=== PATIENT | male | born 1955 | race African-American/Black ===

== ENCOUNTER 2021-08-27 12:39 | Inpatient (IN) ==
[2021-08-27] MEDS ORDERED: GLUCAGON 1 MG VIAL IM PRN ×2 (18:09→18:57)
[2021-08-27] MEDS ORDERED: DEXTROSE 50% 25 GM/50 ML SYRINGE IV PRN (18:26)
[2021-08-27] MEDS ORDERED: ACETAMINOPHEN 325 MG TABLET PO PRN (18:57)
[2021-08-27] MEDS ORDERED: ONDANSETRON 4 MG/2 ML VIAL IV PRN (18:57)
[2021-08-27] MEDS ORDERED: DEXTROSE 50% 25 GM/50 ML VIAL IV PRN (18:57)
[2021-08-27 19:05] LABS: Basophils % 0.6 % (0.0-0.8); Eosinophils # 0.2 10*3/uL (0.0-0.87); Eosinophils % 3.2 % (0.00-10.9); Hematocrit 23.1 VOL% (42.0-52.0); Hemoglobin 6.9 GM/DL (14.0-18.0); Immature Granulocytes % 0.4 %; Immature Granulocytes Absolute 0.02 #; Lymphocytes # 0.7 10*3/uL (1.4-4.0); Mean Corpuscular HGB Conc 29.9 GM/DL (32-36); Mean Corpuscular Volume 90.2 FL (87-102); Mean Platelet Volume 12.3 FL (9.6-12.0); Monocytes % 9.1 % (1.7-12.7); Neutrophils % 71.7 % (38.7-73.9); Platelet Count 125 T/CUMM (130-400); Red Blood Count 2.56 MC/CUMM (3.8-5.5); Red Cell Distribution Width 15.6 % (9.3-17.3); White Blood Count 4.7 T/CUMM (4-12)
[2021-08-27 19:22] LABS: Alanine Aminotransferase 22 U/L (16-61); Albumin 2.7 G/DL (3.4-5.0); Alkaline Phosphatase 68 U/L (45-117); Aspartate Amino Transferase 15 U/L (0-37); Bilirubin,Total < 0.39 MG/DL (0.20-1.00); Blood Urea Nitrogen 108 MG/DL (7-18); Calcium 8.5 MG/DL (8.5-10.1); Carbon Dioxide 24 MMOL/L (21-32); Estimated Glom Filtration Rate 9 ML/MIN; Glucose 140 MG/DL (74-106); Osmolality,Calculated 318.1 MOS/KG (273-304); Sodium 142 MMOL/L (136-145); Total Protein 6.4 G/DL (6.4-8.2)
[2021-08-27] MEDS: ALBUTEROL 2.5 MG/3 ML NEB RESP TX SCH (19:52)
[2021-08-27 20:14] LABS: Hepatitis B Core IgM Quant 0.14 Index; Hepatitis B Surface Ag Quant < 0.10 Index; Hepatitis B Surface Ag Result Non-Reactive (NonReactive); Hepatitis C Virus Ab Quant 0.05 Index; Hepatitis C Virus Ab Result Non-Reactive (NonReactive)
[2021-08-27] MEDS: carvediloL 12.5 MG TABLET PO SCH (22:22)
[2021-08-27] MEDS: SODIUM BICARBONATE 650 MG TABLET PO SCH (22:22)
[2021-08-27] MEDS: QUEtiapine 25 MG TABLET PO SCH (22:22)
[2021-08-27] MEDS: INSULIN REGULAR 100 UNIT/ML SUBCUT SCH (23:29)
[2021-08-27] MEDS: ATORVASTATIN 40 MG TABLET PO SCH (23:30)
[2021-08-28] MEDS: ALBUTEROL 2.5 MG/3 ML NEB RESP TX SCH ×4 (00:38→19:59)
[2021-08-28 06:08] LABS: Basophils # 0.1 10*3/uL (0.0-0.2); Eosinophils # 0.2 10*3/uL (0.0-0.87); Eosinophils % 3.2 % (0.00-10.9); Hematocrit 22.8 VOL% (42.0-52.0); Hemoglobin 6.9 GM/DL (14.0-18.0); Immature Granulocytes % 0.4 %; Immature Granulocytes Absolute 0.02 #; Lymphocytes # 1.3 10*3/uL (1.4-4.0); Lymphocytes % 25.2 % (21.2-54.2); Mean Corpuscular HGB Conc 30.3 GM/DL (32-36); Mean Corpuscular Volume 89.4 FL (87-102); Mean Platelet Volume 12.3 FL (9.6-12.0); Monocytes % 7.1 % (1.7-12.7); Neutrophils % 63.1 % (38.7-73.9); Platelet Count 115 T/CUMM (130-400); Red Blood Count 2.55 MC/CUMM (3.8-5.5); Red Cell Distribution Width 15.4 % (9.3-17.3)
[2021-08-28 06:28] LABS: Calcium 8.3 MG/DL (8.5-10.1); Osmolality,Calculated 315.7 MOS/KG (273-304); Potassium 4.9 MMOL/L (3.5-5.1)
[2021-08-28] MEDS ORDERED: ceFAZolin 2,000 MG/50 ML DUPLEX IV ONE (06:51)
[2021-08-28] MEDS: INSULIN REGULAR 100 UNIT/ML SUBCUT SCH ×4 (07:50→20:47)
[2021-08-28] MEDS ORDERED: BUPIVACAINE MPF 0.25% 30 ML VIAL ONE (08:07)
[2021-08-28] MEDS ORDERED: HEPARIN 5,000 UNIT/1 ML VIAL ONE (08:07)
[2021-08-28] MEDS ORDERED: TISSUE ADHESIVE 1 EACH APPLICATOR TOP ONE (08:07)
[2021-08-28] MEDS ORDERED: LIDOCAINE 1%/EPI INJ 20 ML VIAL ONE (08:07)
[2021-08-28] MEDS ORDERED: LIDOCAINE 2% 5 ML VIAL ONE (08:18)
[2021-08-28] MEDS ORDERED: propofoL 200 MG/20 ML VIAL IV ONE (08:18)
[2021-08-28] MEDS ORDERED: SODIUM CHLORIDE 0.9% 250 ML IV SCH (08:30)
[2021-08-28] MEDS: carvediloL 12.5 MG TABLET PO SCH ×2 (09:59→20:46)
[2021-08-28] MEDS: SODIUM BICARBONATE 650 MG TABLET PO SCH ×2 (09:59→20:47)
[2021-08-28] MEDS: PANTOPRAZOLE 40 MG TABLET PO SCH (10:12)
[2021-08-28] MEDS: FOLIC ACID 1 MG TABLET PO SCH (10:12)
[2021-08-28] MEDS: THIAMINE 100 MG TABLET PO SCH (10:12)
[2021-08-28] MEDS: FERROUS SULFATE 325 MG TABLET PO SCH ×2 (10:12→15:59)
[2021-08-28] MEDS ORDERED: SODIUM CHLORIDE 0.9% 1,000 ML IV PRN (10:21)
[2021-08-28] MEDS ORDERED: HEPARIN 10,000 UNIT/10 ML VIAL IV PRN (16:52)
[2021-08-28] MEDS: hydrALAZINE 20 MG/1 ML VIAL IV PRN (19:10)
[2021-08-28] MEDS: ATORVASTATIN 40 MG TABLET PO SCH (20:46)
[2021-08-28] MEDS: QUEtiapine 25 MG TABLET PO SCH (20:47)
[2021-08-29] MEDS: ALBUTEROL 2.5 MG/3 ML NEB RESP TX SCH ×4 (00:26→19:54)
[2021-08-29 05:29] LABS: Basophils # 0.1 10*3/uL (0.0-0.2); Eosinophils # 0.2 10*3/uL (0.0-0.87); Eosinophils % 2.8 % (0.00-10.9); Hematocrit 28.4 VOL% (42.0-52.0); Hemoglobin 9.1 GM/DL (14.0-18.0); Immature Granulocytes % 0.5 %; Immature Granulocytes Absolute 0.03 #; Lymphocytes % 16.9 % (21.2-54.2); Mean Corpuscular Volume 86.3 FL (87-102); Mean Platelet Volume 11.8 FL (9.6-12.0); Neutrophils % 71.8 % (38.7-73.9); Platelet Count 119 T/CUMM (130-400); Red Blood Count 3.29 MC/CUMM (3.8-5.5); White Blood Count 6.2 T/CUMM (4-12)
[2021-08-29 05:48] LABS: Calcium 8.2 MG/DL (8.5-10.1); Osmolality,Calculated 307.6 MOS/KG (273-304); Potassium 4.2 MMOL/L (3.5-5.1)
[2021-08-29] MEDS: INSULIN REGULAR 100 UNIT/ML SUBCUT SCH ×4 (08:07→20:46)
[2021-08-29] MEDS: FERROUS SULFATE 325 MG TABLET PO SCH ×2 (08:24→18:03)
[2021-08-29] MEDS: SODIUM BICARBONATE 650 MG TABLET PO SCH ×2 (08:24→20:49)
[2021-08-29] MEDS: FOLIC ACID 1 MG TABLET PO SCH (08:24)
[2021-08-29] MEDS: THIAMINE 100 MG TABLET PO SCH (08:24)
[2021-08-29] MEDS: PANTOPRAZOLE 40 MG TABLET PO SCH (08:24)
[2021-08-29] MEDS: carvediloL 12.5 MG TABLET PO SCH ×2 (12:52→20:49)
[2021-08-29] MEDS: hydrALAZINE 20 MG/1 ML VIAL IV PRN (13:24)
[2021-08-29] MEDS: QUEtiapine 25 MG TABLET PO SCH (20:49)
[2021-08-29] MEDS: ATORVASTATIN 40 MG TABLET PO SCH (20:49)
[2021-08-30] MEDS: ALBUTEROL 2.5 MG/3 ML NEB RESP TX SCH ×4 (00:25→19:47)
[2021-08-30] MEDS: INSULIN REGULAR 100 UNIT/ML SUBCUT SCH ×3 (16:31→21:29)
[2021-08-30] MEDS: carvediloL 12.5 MG TABLET PO SCH ×2 (16:32→21:29)
[2021-08-30] MEDS: FERROUS SULFATE 325 MG TABLET PO SCH ×2 (16:32→18:03)
[2021-08-30] MEDS: FOLIC ACID 1 MG TABLET PO SCH (16:32)
[2021-08-30] MEDS: SODIUM BICARBONATE 650 MG TABLET PO SCH ×2 (16:33→21:28)
[2021-08-30] MEDS: PANTOPRAZOLE 40 MG TABLET PO SCH (16:33)
[2021-08-30] MEDS: THIAMINE 100 MG TABLET PO SCH (16:33)
[2021-08-30] MEDS: ENOXAPARIN 30 MG/0.3 ML SYRINGE SUBCUT SCH (16:40)
[2021-08-30 17:45] LABS: Calcium 8.4 MG/DL (8.5-10.1); Potassium 4.5 MMOL/L (3.5-5.1)
[2021-08-30 19:23] LABS: Basophils # 0.1 10*3/uL (0.0-0.2); Basophils % 0.9 % (0.0-0.8); Eosinophils # 0.1 10*3/uL (0.0-0.87); Eosinophils % 2.1 % (0.00-10.9); Hematocrit 31.9 VOL% (42.0-52.0); Hemoglobin 10.1 GM/DL (14.0-18.0); Immature Granulocytes % 0.5 %; Immature Granulocytes Absolute 0.03 #; Lymphocytes % 15.3 % (21.2-54.2); Mean Corpuscular HGB Conc 31.7 GM/DL (32-36); Mean Corpuscular Volume 86.9 FL (87-102); Mean Platelet Volume 11.3 FL (9.6-12.0); Monocytes % 6.8 % (1.7-12.7); Neutrophils % 74.4 % (38.7-73.9); Platelet Count 145 T/CUMM (130-400); Red Blood Count 3.67 MC/CUMM (3.8-5.5); Red Cell Distribution Width 14.8 % (9.3-17.3); White Blood Count 6.7 T/CUMM (4-12)
[2021-08-30] MEDS: QUEtiapine 25 MG TABLET PO SCH (21:29)
[2021-08-30] MEDS: hydrALAZINE 25 MG TABLET PO SCH (21:29)
[2021-08-30] MEDS: ATORVASTATIN 40 MG TABLET PO SCH (21:29)
[2021-08-31] MEDS: ALBUTEROL 2.5 MG/3 ML NEB RESP TX SCH ×4 (00:47→20:01)
[2021-08-31 06:37] LABS: Basophils # 0.1 10*3/uL (0.0-0.2); Eosinophils # 0.2 10*3/uL (0.0-0.87); Eosinophils % 3.1 % (0.00-10.9); Immature Granulocytes % 0.5 %; Immature Granulocytes Absolute 0.03 #; Lymphocytes # 1.4 10*3/uL (1.4-4.0); Lymphocytes % 22.7 % (21.2-54.2); Mean Corpuscular HGB Conc 32.1 GM/DL (32-36); Mean Corpuscular Volume 87.8 FL (87-102); Mean Platelet Volume 12.4 FL (9.6-12.0); Monocytes % 8.3 % (1.7-12.7); Neutrophils % 64.4 % (38.7-73.9); Platelet Count 128 T/CUMM (130-400); Red Blood Count 3.19 MC/CUMM (3.8-5.5); Red Cell Distribution Width 14.6 % (9.3-17.3); White Blood Count 6.2 T/CUMM (4-12)
[2021-08-31 07:07] LABS: Calcium 8.4 MG/DL (8.5-10.1); Osmolality,Calculated 301.7 MOS/KG (273-304); Potassium 4.1 MMOL/L (3.5-5.1)
[2021-08-31] MEDS: THIAMINE 100 MG TABLET PO SCH (10:13)
[2021-08-31] MEDS: FOLIC ACID 1 MG TABLET PO SCH (10:13)
[2021-08-31] MEDS: hydrALAZINE 25 MG TABLET PO SCH ×3 (10:13→20:27)
[2021-08-31] MEDS: SODIUM BICARBONATE 650 MG TABLET PO SCH ×2 (10:13→20:28)
[2021-08-31] MEDS: FERROUS SULFATE 325 MG TABLET PO SCH ×2 (10:13→17:10)
[2021-08-31] MEDS: PANTOPRAZOLE 40 MG TABLET PO SCH (10:13)
[2021-08-31] MEDS: carvediloL 12.5 MG TABLET PO SCH ×2 (10:14→20:28)
[2021-08-31] MEDS: INSULIN REGULAR 100 UNIT/ML SUBCUT SCH ×4 (11:28→20:28)
[2021-08-31] MEDS: ENOXAPARIN 30 MG/0.3 ML SYRINGE SUBCUT SCH (15:37)
[2021-08-31] MEDS: ATORVASTATIN 40 MG TABLET PO SCH (20:28)
[2021-08-31] MEDS: QUEtiapine 25 MG TABLET PO SCH (20:28)
[2021-09-01] MEDS: ALBUTEROL 2.5 MG/3 ML NEB RESP TX SCH ×2 (00:38→07:31)
[2021-09-01] MEDS: hydrALAZINE 20 MG/1 ML VIAL IV PRN (03:45)
[2021-09-01 06:01] LABS: Basophils # 0.1 10*3/uL (0.0-0.2); Eosinophils # 0.3 10*3/uL (0.0-0.87); Eosinophils % 4.1 % (0.00-10.9); Hematocrit 31.5 VOL% (42.0-52.0); Hemoglobin 9.7 GM/DL (14.0-18.0); Immature Granulocytes % 0.3 %; Immature Granulocytes Absolute 0.02 #; Lymphocytes # 1.4 10*3/uL (1.4-4.0); Lymphocytes % 20.7 % (21.2-54.2); Mean Corpuscular HGB Conc 30.8 GM/DL (32-36); Mean Corpuscular Volume 89.2 FL (87-102); Mean Platelet Volume 12.4 FL (9.6-12.0); Monocytes % 5.9 % (1.7-12.7); Platelet Count 117 T/CUMM (130-400); Red Blood Count 3.53 MC/CUMM (3.8-5.5); Red Cell Distribution Width 14.7 % (9.3-17.3); White Blood Count 6.9 T/CUMM (4-12)
[2021-09-01 06:17] LABS: Calcium 8.7 MG/DL (8.5-10.1); Potassium 4.2 MMOL/L (3.5-5.1)
[2021-09-01 06:23] LABS: Hypochromasia 1+; Microcytosis 1+
[2021-09-01] MEDS: INSULIN REGULAR 100 UNIT/ML SUBCUT SCH ×3 (07:32→16:29)
[2021-09-01] MEDS: FERROUS SULFATE 325 MG TABLET PO SCH ×2 (08:42→16:30)
[2021-09-01] MEDS: FOLIC ACID 1 MG TABLET PO SCH (08:43)
[2021-09-01] MEDS: carvediloL 12.5 MG TABLET PO SCH (08:43)
[2021-09-01] MEDS: SODIUM BICARBONATE 650 MG TABLET PO SCH (08:43)
[2021-09-01] MEDS: THIAMINE 100 MG TABLET PO SCH (08:43)
[2021-09-01] MEDS: hydrALAZINE 25 MG TABLET PO SCH ×2 (08:43→16:23)
[2021-09-01] MEDS: PANTOPRAZOLE 40 MG TABLET PO SCH (08:43)
[2021-09-01] MEDS: ENOXAPARIN 30 MG/0.3 ML SYRINGE SUBCUT SCH (16:23)
== END 2021-09-01 17:06 | DRG 673 ==
LOC: SUATTDRO 17:06 → N.3E 17:06
PROVIDERS: ADMIT Internal Medicine Nephrology; ATTEND Internal Medicine